=== PATIENT | male | born 1970 | race Caucasian/White ===

== ENCOUNTER 2017-08-10 20:53 | Emergency (ER) | payer BC ==
[2017-08-10 20:56] VITALS: BP 121/79; PULSE 79; RESP 16; TEMP 98.3
--- NOTE | 2017-08-10 22:14 | XR ---
EXAMINATION TYPE: XR foot complete LT DATE OF EXAM: 08/10/2017 CLINICAL HISTORY: Lateral pain TECHNIQUE: Frontal, lateral, and oblique images of the left foot are obtained. COMPARISON: None FINDINGS: There is no acute fracture/dislocation evident in the left foot. The joint spaces in the left foot appear within normal limits. There is a 25 mm calcific density projecting lateral to the c uboid bone suggestive of an os perineum. No plantar spur. Overlying soft tissue appears unremarkable . IMPRESSION: There is no acute fracture or dislocation in the left foot. Superimposition of an os per oneum.
--- NOTE | 2017-08-10 22:29 | ED ---
Lower Extremity Injury HPI - General Chief Complaint: Extremity Injury, Lower Stated Complaint: foot pain Time Seen by Provider: 08/10/17 21:17 Source: patient Mode of arrival: ambulatory Limitations: no limitations - History of Present Illness Initial Comments: 47 years old male jumped in his pool landed on the left foot now complaining about pain in the left foot and swelling over the dorsal surface of the proximal left foot is able to bear weight there is a discomfort no other injuries at all no head injury no neck injury no loss of consciousness review of system is unremarkable otherwise - Related Data Allergies Allergy/AdvReac Type Severity Reaction Status Date / Time No Known Allergies Allergy Verified 08/10/17 20:54 Review of Systems ROS Statement: Those systems with pertinent positive or pertinent negative responses have been documented in the HPI. ROS Other: All systems not noted in ROS Statement are negative. Past Medical History Past Medical History: Hypertension History of Any Multi-Drug Resistant Organisms: None Reported Additional Past Surgical History / Comment(s): sinus surgery Past Psychological History: No Psychological Hx Reported Smoking Status: Never smoker Past Alcohol Use History: None Reported Past Drug Use History: None Reported General Exam - General Exam Comments Initial Comments: General: The patient is awake and alert, in no distress, and does not appear acutely ill. Skin: Skin is warm and dry and no rashes or lesions are noted. Noticed swelling over the proximal dorsal surface of the left foot over the cuboid bone is slightly tender no sign of any infection may be a small hematoma patient is not tender over the proximal fifth metatarsal most commonly fractured area range of motion is slightly distracted because of the pain as well as dorsiflexion is concerned no motor or sensory deficits noticed, capillary refills are within normal range Eye: Pupils are equal, round and reactive to light, extra-ocular movements are intact; there is normal conjunctiva bilaterally. Ears, nose, mouth and throat: There are moist mucous membranes and no oral lesions. Neck: The neck is supple, there is no tenderness or JVD. Cardiovascular: There is a regular rate and rhythm. No murmur, rub or gallop is appreciated. Respiratory: To auscultation bilateral, no wheezing no rhonchi no distress respiratory nair noticed Gastrointestinal: Soft, non-distended, non-tender abdomen without masses or organomegaly noted. There is no rebound or guarding present. Bowel sounds are unremarkable. Back: There is no tenderness to palpation in the midline. There is no obvious deformity. Musculoskeletal: Normal ROM, no tenderness, There is no pedal edema. There is no calf tenderness or swelling. No cords were appreciated. Neurological: CN II-XII intact, Cranial nerves III through XII are intact. There are no obvious motor or sensory deficits. Coordination appears grossly intact. Speech is normal. Psychiatric: Cooperative, appropriate mood & affect, normal judgment. Limitations: no limitations Course Vital Signs 08/10/17 20:54 Temperature 98.3 F Pulse Rate 79 Respiratory 16 Rate Blood Pressure 121/79 O2 Sat by Pulse 98 Oximetry Disposition Clinical Impression: Foot contusion Disposition: HOME SELF-CARE Condition: Good Instructions: Foot Contusion (ED) Additional Instructions: Ice and elevation and fell as needed and return to ER if symptoms get worse Is patient prescribed a controlled substance at d/c from ED?: No Referrals: Mason Tubbs MD [Primary Care Provider] - 1-2 days
== END 2017-08-10 22:41 | disposition home or self-care (01) ==
LOC: EC 20:53
DX: S90.32XA Contusion of left foot, initial encounter (principal); W16.512A Jumping or diving into swimming pool striking water surface causing other injury, initial encounter; Y92.095 Swimming-pool of other non-institutional residence as the place of occurrence of the external cause
CPT/HCPCS: 99283

== ENCOUNTER → 2019-12-22 | Outpatient (CLI) | payer BC ==
--- NOTE | 2019-12-22 13:42 | XR ---
EXAMINATION TYPE: XR chest 2V DATE OF EXAM: 12/22/2019 COMPARISON: None HISTORY: 49 year-old male shortness of breath TECHNIQUE: Frontal and lateral views FINDINGS: The cardiomediastinal silhouette, aorta, and pulmonary vasculature are within normal limits. Lungs an d pleural spaces are clear. IMPRESSION: No acute cardiopulmonary process.
== END | disposition home or self-care (01) ==
LOC: RADXRYALE 12:39
PROVIDERS: ATTEND Physician Assistant
DX: R06.02 Shortness of breath (principal)
CPT/HCPCS: 71046

== ENCOUNTER → 2021-08-30 | Outpatient (CLI) | payer BC ==
--- NOTE | 2021-08-30 09:13 | XR ---
EXAMINATION TYPE: XR Hip Complete LT DATE OF EXAM: 08/30/2021 8:54 AM INDICATION: Patient age:Male; 51 years old; Reason for study: [id number] LT HIP PAIN. COMPARISON: None. TECHNIQUE: The left hip was examined in the frontal and lateral projections FINDINGS: Mild osteophyte formation of the acetabulum. No evidence of any acute osseous pathology, akua int dislocation, or soft tissue swelling. IMPRESSION: 1. No acute osseous pathology. 2. Mild left hip osteoarthrosis.
== END | disposition home or self-care (01) ==
LOC: RADXRYALE 08:38
PROVIDERS: ATTEND Physician Assistant
DX: M16.12 Unilateral primary osteoarthritis, left hip (principal)
CPT/HCPCS: 73502

== ENCOUNTER → 2022-01-07 | Outpatient (CLI) | payer BC ==
--- NOTE | 2022-01-07 08:10 | US ---
EXAMINATION TYPE: US abdomen complete DATE OF EXAM: 01/07/2022 COMPARISON: NONE CLINICAL HISTORY: Z12.11 SCREENING FOR COLON CA,K46.9 HERNIA W/O OBS. Patient feels abdominal bulge w ithin the midline epigastric area x 6 months. TECHNIQUE: Multiple sonographic images of the abdomen are obtained. FINDINGS: EXAM MEASUREMENTS: Liver Length: 15.8 cm Gallbladder Wall: 0.30 cm CBD: 0.43 cm Spleen: 11.1 cm Right Kidney: 11.5 x 5.1 x 5.1 cm Left Kidney: 11.5 x 5.7 x 5.3 cm HEMATOLOGY NURSE NOTES: Limited due to gas and body habitus. Pancreas: Not well seen. Liver: Appears coarse with increased echogenicity. Gallbladder: Folds seen. Wall measures upper limits. Evidence for sonographic Kay's sign: No CBD: Portions seen appear wnl Spleen: Appears wnl Right Kidney: No hydronephrosis or obvious masses seen Left Kidney: No hydronephrosis or obvious masses seen Upper IVC: Appears wnl Abd Aorta: Portions seen appear wnl, distal and iliacs were obscured. Scanned midline epigastric area at patient's area of concern and bulging area. Scanned superficially and deep, limited due to gas. Unable to visualize abnormality at this time by ultrasound, recommend a dditional modality. No aneurysm and visualized portion of the abdominal aorta. Visualized pancreas shows no worrisome mas s or ductal dilatation. Visualized liver is heterogeneously hyperechoic. Evaluation for focal masses suboptimal due to the heterogeneity. No shadowing mobile gallstones. Common bile duct measures within normal limits. Kidneys symmetric in normal in size without hydronephrosis. Scanning midline epigastr ic region shows no worrisome mass or focal fluid collection. No obvious hernia defects seen. Spleen i s normal in size. IMPRESSION: Suboptimal study without definitive ventral wall hernia defect or concerning lesion ident ified.
== END | disposition home or self-care (01) ==
LOC: RADUSWWP 07:11
PROVIDERS: ATTEND Pediatrics
DX: Z12.11 Encounter for screening for malignant neoplasm of colon (principal); K46.9 Unspecified abdominal hernia without obstruction or gangrene
CPT/HCPCS: 76700

== ENCOUNTER → 2022-02-06 | Outpatient (CLI) | payer BC ==
--- NOTE | 2022-02-06 14:27 | CT ---
EXAMINATION TYPE: CT abdomen wo/w con DATE OF EXAM: 02/06/2022 COMPARISON: None INDICATION: Pt feels lump in central abdomen, abdominal hernia DLP: 1293 mGycm, Automated exposure control for dose reduction was used. CONTRAST: 70 mL of Isovue 300. Study performed with Oral Contrast TECHNIQUE: Axial images were obtained from above the diaphragm to the pubic rami in the axial plane a t 5 mm thick sections. Reconstructed images are reviewed on the computer in the coronal plane. FINDINGS: Limited CT sections are obtained the lung bases. The lung bases are clear. CT ABDOMEN: Subcutaneous tissues appear normal. Anterior abdominal wall appears intact within the fie ld-of-view. Liver: Some mild fatty infiltration may be present Spleen: Normal Pancreas: Normal Adrenal glands: The adrenal glands are normal. Gallbladder: Normal Kidneys: No masses are evident. No hydronephrosis is present. Small cortical renal cyst is evident. Delayed images were obtained through the kidneys, which remain unremarkable. Aorta: Normal Inferior vena cava: Normal. Bowel: Loops of bowel within the abdomen and pelvis are normal. There are loops of bowel which ar e incompletely distended or lack oral contrast limiting their evaluation. IMPRESSIONS: 1. No suspicious acute changes pre and postcontrast CT abdomen.
== END | disposition home or self-care (01) ==
LOC: RADCTMAIN 12:05
PROVIDERS: ATTEND Pediatrics
DX: K46.9 Unspecified abdominal hernia without obstruction or gangrene (principal)
CPT/HCPCS: 74170; Q9967 ×2

== ENCOUNTER → 2023-12-28 | Outpatient (CLI) | payer BC ==
--- NOTE | 2023-12-28 10:29 | MR ---
EXAMINATION TYPE: MR lumbar spine wo con DATE OF EXAM: 12/28/2023 6:49 AM COMPARISON: None. CLINICAL INDICATION: Male, 53 years old with history of M48.061 L SPINAL STENOSIS M51.362 INTVRT DISC DEGE, Herniated disc L4-L5, back pain TECHNIQUE: Multiplanar, multisequence images of the lumbar spine were acquired. IV Contrast: mL (None, if empty) FINDINGS: Cord ends at the L1 level L5-S1: Small left paracentral disc herniation is present anterior thecal sac contact. Mild facet hype rtrophy is present. No spinal canal stenosis or neural foraminal stenosis. Minimal Disc desiccation i s present. L4-L5: Broad-based disc bulge with mild anterior thecal sac flattening. Some subligamentous disc her niation is present. No AP spinal canal stenosis present. Facet hypertrophy and ligamentum flavum laxi ty are present. Moderate bilateral foraminal narrowing is present. Mild disc desiccation is present. L3-L4: No focal disc herniation or significant disc bulge. No spinal canal stenosis. Neural foramen are patent. L2-L3: No focal disc herniation or significant disc bulge. No spinal canal stenosis. Neural foramen are patent. L1-L2: No focal disc herniation or significant disc bulge. No spinal canal stenosis. Neural foramen are patent. T12-L1: No focal disc herniation or significant disc bulge. No spinal canal stenosis. Neural forame n are patent. IMPRESSION: 1. Minimal to mild disc desiccation L4-5 L5-S1. 2. Mild left paracentral disc bulge L5-S1 with anterior thecal sac contact. No stenosis. 3. Subligamentous disc herniation with broad-based disc bulge L4-5 has mild anterior thecal sac compr ession 4. Moderate bilateral foraminal stenosis of L4-5 [facility], , 12/28/2023 10:26 AM
== END | disposition home or self-care (01) ==
LOC: RADMRIMAIN 06:14
PROVIDERS: ATTEND Orthopaedic Surgery
DX: M48.061 Spinal stenosis, lumbar region without neurogenic claudication (principal); M51.16 Intervertebral disc disorders with radiculopathy, lumbar region; M51.17 Intervertebral disc disorders with radiculopathy, lumbosacral region
CPT/HCPCS: 72148